=== PATIENT | female | born 1975 | race African-American/Black ===

== ENCOUNTER 2018-02-22 16:18 | Observation (INO) ==
[2018-02-22] MEDS ORDERED: Aluminum/Magnesium/Simethacone Susp 30 ML UDC PO ONE (17:24)
[2018-02-22] MEDS ORDERED: Morphine Inj 4 MG/ML Vial IV.PUSH ONE (17:24)
[2018-02-22] MEDS ORDERED: Famotidine PF Inj 20 MG/2 ML Vial IV.PUSH ONE (17:24)
--- NOTE | 2018-02-22 17:29 | ED ---
HPI General Chief Complaint: Abdominal Pain Stated Complaint: stomach pain/ Time Seen by Provider: 02/22/18 17:19 Source: patient Mode of arrival: ambulatory Limitations: no limitations History of Present Illness HPI narrative: Patient states no history of any past medical past surgical history with exception of tubal ligation. Patient denies any past medical history with exception of hypertension for which she is on amlodipine. Patient had acute onset of epigastric area pain, nonradiating, woke her up from sleep MD complaint: abdominal pain Onset (ago): day(s) (1) Pain Consistency: constant Location: epigastric Severity: mild Severity scale (1-10): 4 Quality: cramping and burning Radiation: none Migration to: no migration Relieving factors: nothing Exacerbating factors: nothing Associated symptoms: denies other symptoms Related Data Home Medications Medication Instructions Recorded Confirmed amlodipine 5 mg PO DAILY 02/22/18 02/22/18 Allergies Allergy/AdvReac Type Severity Reaction Status Date / Time No Known Allergies Allergy Verified 02/22/18 16:25 Review of Systems Except as stated in HPI: all other systems reviewed are negative PMFSH History History Provided By: Patient Medical History Medical History Hx of primary hypertension (Acute) Surgical History Surgical History Hx of tubal ligation (Acute) Social History Social History Substance History: No History of Abuse Smoking Status: Never smoker How Often Do You Have a Drink Containing Alcohol: 2 to 4 times a month Recent Travel in [facility] within the Last 8 Weeks: No Recent Out of Country Travel within the Last 8 Weeks: No Immunization History Tetanus Immunization: Unsure Hx Influenza Vaccine This Season: No Exam Narrative Exam Narrative: GENERAL: Well-nourished, well-developed patient in no apparent distress. SKIN: Warm and dry. HEAD: Atraumatic. Normocephalic. EYES: Pupils equal and round. No scleral icterus. No injection or drainage. ENT: No nasal bleeding or discharge. Mucous membranes pink and moist. NECK: Trachea midline. No JVD. CARDIOVASCULAR: Regular rate and rhythm. no rubs or gallops RESPIRATORY: No accessory muscle use. Clear to auscultation. Breath sounds equal bilaterally. GASTROINTESTINAL: Abdomen soft, non-tender, nondistended. No rebound or guarding MUSCULOSKELETAL: Extremities without clubbing, cyanosis, or edema. No obvious deformities. NEUROLOGICAL: Awake and alert. No obvious cranial nerve deficits. Motor grossly within normal limits. Five out of 5 muscle strength in the arms and legs. Normal speech. PSYCHIATRIC: Appropriate mood and affect; insight and judgment normal. Course Initial Documented Vital Signs Temperature 98.6 F 02/22/18 16:25 Pulse Rate 91 H 02/22/18 16:25 Respiratory Rate 18 02/22/18 16:25 Blood Pressure 223/119 H 02/22/18 16:25 Pulse Oximetry 99 02/22/18 16:25 Last Documented Vital Signs Temperature 98.6 F 02/22/18 16:25 Pulse Rate 91 H 02/22/18 16:25 Respiratory Rate 18 02/22/18 16:25 Blood Pressure 223/119 H 02/22/18 16:25 Pulse Oximetry 99 02/22/18 16:25 Medical Decision Making Lab Data Result diagrams: 02/22/18 17:30 02/22/18 17:30 Lab Results 02/22/18 02/22/18 02/22/18 Range/Units 17:30 17:30 17:30 CBC w Diff Auto diff final WBC 7.9 (4.0-11.0) th/mm3 RBC 4.95 (4.00-5.30) mil/mm3 Hgb 12.4 (11.6-15.3) gm/dL Hct 39.8 (35.0-46.0) % MCV 80.4 (80.0-100.0) fL MCH 25.0 L (27.0-34.0) pg MCHC 31.1 L (32.0-36.0) % RDW 14.2 (11.6-17.2) % Plt Count 255 (150-450) th/mm3 MPV 10.5 (7.0-11.0) fL Neut % (Auto) 71.2 H (16.0-70.0) % Lymph % (Auto) 21.1 (9.0-44.0) % [place] % (Auto) 4.6 (0.0-8.0) % Eos % (Auto) 2.1 (0.0-4.0) % Baso % (Auto) 1.0 (0.0-2.0) % Neut # (Auto) 5.5 (1.8-7.7) th/mm3 Lymph # (Auto) 1.7 (1.0-4.8) th/mm3 [place] # (Auto) 0.4 (0.0-0.9) th/mm3 Eos # (Auto) 0.2 (0.0-0.4) th/mm3 Baso # (Auto) 0.1 (0.0-0.2) th/mm3 WBC Differential . Differential Comment . Sodium 137 (136-145) meq/L Potassium 3.3 L (3.5-5.1) meq/L Chloride 102 (98-107) meq/L Carbon Dioxide 25.9 (21.0-32.0) meq/L Anion Gap 9 (5-15) meq/L BUN 13 (7-18) mg/dL Creatinine 1.30 H (0.50-1.00) mg/dL Estimated GFR 54 L (>89) mL/min Random Glucose 92 (74-106) mg/dL Calcium 9.0 (8.5-10.1) mg/dL Total Bilirubin 0.5 (0.2-1.0) mg/dL AST 21 (15-37) U/L ALT 29 (10-53) U/L Alkaline Phosphatase 69 (45-117) U/L Troponin I Cancelled 0.06 H Total Protein 9.0 H (6.4-8.2) g/dL Albumin 3.7 (3.4-5.0) g/dL Lipase 162 (73-393) U/L Imaging Data Radiologist's impression: Abdomen/Pelvis CT 02/22/18 17:24 CONCLUSION: 1. Subtle increased density within the gallbladder likely related to noncalcified gallstones. 2. No acute areas of inflammation are seen within the abdomen or pelvis. 3. Minimal patchy density is identified at the lower lobes likely related to atelectasis or minimal consolidation. 4. Diastases of the rectus muscles versus an umbilical hernia containing mesenteric fat. Discharge Plan Discharge Disposition Patient Disposition: 30 Still Patient Discharge Condition Condition: Stable Discharge Details Diagnosis: Elevated troponin, Epigastric abdominal pain Physicians Team ED Provider: Fabian Kunz Primary Care Provider: UNKNOWN, Rxs /Orders / Referrals /Forms Prescriptions: No Action amlodipine 5 mg Tablet 5 mg PO DAILY RF: 0 Status ED Status: With Doctor
--- NOTE | 2018-02-22 18:33 | CT ---
EXAM DATE: 02/22/2018 6:16 PM EDT AGE/SEX: 42 years / Female INDICATIONS: Bilateral upper quadrant pain. CLINICAL DATA: This is the patient's initial encounter. Patient reports that signs and symptoms have been present for 1 day and indicates a pain score of 8/10. MEDICAL/SURGICAL HISTORY: Hypertension. Tubal ligation. RADIATION DOSE: 14.47 CTDI (mGy) COMPARISON: No prior exams available for comparison. TECHNIQUE: Multiple contiguous axial images were obtained through the abdomen. Images were obtained using multiple row detector helical technique. Using automated exposure control and adjustment of the mA and/or kV according to patient size, radiation dose was kept as low as reasonably achievable to o btain optimal diagnostic quality images. DICOM format image data is available electronically for rev iew and comparison. FINDINGS: Lower Lungs: Minimal patchy density seen at the lower lobes especially at the right lower lobe. Liver: The liver has a homogeneous density without space-occupying lesion. There is no dilation of th e biliary tree. Mild increased density within the gallbladder likely related to noncalcified gallston es. Spleen: Homogeneous density without enlargement. Pancreas: Unremarkable without mass or calcification. Kidneys: Normal in size and shape. No evidence of mass or hydronephrosis. Adrenal Glands: Unremarkable. Aorta: The aorta and proximal iliac vessels are grossly unremarkable without aneurysmal dilation. Bowel/Mesentery: The bowel loops are grossly unremarkable. The cecum and sigmoid colon have a normal configuration. The appendix is normal. Abdominal Wall: There is diastases of the rectus muscles versus a umbilical hernia seen in the midli ne at the level the umbilicus containing only mesenteric fat. Retroperitoneum: No evidence of adenopathy in the retrocrural, para-aortic, or deep pelvic regions. Bladder: Contours are smooth. Reproductive Organs: The uterus appears mildly prominent. There is a 3 cm rounded focal density in t he anterior right adnexal region likely related to a mildly prominent right ovary. What appears to be the left ovary is seen in the lateral left pelvis and appears normal in size. No free fluid is seen. The pelvic structures are within normal range for the patient's age. Inguinal: The inguinal region is unremarkable without evidence of adenopathy. Bony Structures: Unremarkable. CONCLUSION: 1. Subtle increased density within the gallbladder likely related to noncalcified gallstones. 2. No acute areas of inflammation are seen within the abdomen or pelvis. 3. Minimal patchy density is identified at the lower lobes likely related to atelectasis or minimal consolidation. 4. Diastases of the rectus muscles versus an umbilical hernia containing mesenteric fat. Electronically signed by: Juan Matthews MD 02/22/2018 6:31 PM EDT
[2018-02-22 18:48] LABS: Baso # (Auto) 0.1 th/mm3 (0.0-0.2); Eos # (Auto) 0.2 th/mm3 (0.0-0.4); Eos % (Auto) 2.1 % (0.0-4.0); Hematocrit 39.8 % (35.0-46.0); Hemoglobin 12.4 gm/dL (11.6-15.3); Lymph # (Auto) 1.7 th/mm3 (1.0-4.8); Lymph % (Auto) 21.1 % (9.0-44.0); Mean Corpuscular HGB Conc 31.1 % (32.0-36.0); Mean Corpuscular Volume 80.4 fL (80.0-100.0); Mean Platelet Volume 10.5 fL (7.0-11.0); Mono # (Auto) 0.4 th/mm3 (0.0-0.9); Mono % (Auto) 4.6 % (0.0-8.0); Neut # (Auto) 5.5 th/mm3 (1.8-7.7); Neut % (Auto) 71.2 % (16.0-70.0); Platelet Count 255 th/mm3 (150-450); Red Blood Count 4.95 mil/mm3 (4.00-5.30); Red Cell Distribution Width 14.2 % (11.6-17.2); White Blood Count 7.9 th/mm3 (4.0-11.0)
[2018-02-22 18:55] LABS: Chloride 102 meq/L (98-107); Potassium 3.3 meq/L (3.5-5.1); Sodium 137 meq/L (136-145)
[2018-02-22 18:59] LABS: Albumin 3.7 g/dL (3.4-5.0); Anion Gap 9 meq/L (5-15); Blood Urea Nitrogen 13 mg/dL (7-18); Carbon Dioxide 25.9 meq/L (21.0-32.0); Glucose,Random 92 mg/dL (74-106); Lipase 162 U/L (73-393)
[2018-02-22 19:02] LABS: Alanine Aminotransferase 29 U/L (10-53); Aspartate Aminotransferase 21 U/L (15-37); Glomerular Filtration Rate 54 mL/min (>89)
[2018-02-22 19:05] LABS: Alkaline Phosphatase 69 U/L (45-117)
[2018-02-22 19:07] LABS: Troponin I 0.06 ng/mL (0.02-0.05)
[2018-02-22] MEDS ORDERED: hydrALAZINE HCl Inj 20 MG/ML Vial IV.PUSH ONE (19:28)
[2018-02-22] MEDS ORDERED: Bisacodyl 10 MG Supp RECTAL PRN (20:19)
[2018-02-22] MEDS ORDERED: Temazepam 15 MG Capsule PO PRN (20:19)
[2018-02-22] MEDS ORDERED: Metoprolol Inj 5 MG/5 ML Vial IV.PUSH ONE (20:30)
[2018-02-22] MEDS ORDERED: Acetaminophen 325 MG Tablet PO PRN (21:00)
[2018-02-22] MEDS ORDERED: Senna/Docusate Sodium 8.6/50 MG Tablet PO SCH (21:00)
[2018-02-23] MEDS ORDERED: amLODIPine 5 MG Tablet PO SCH (09:00)
--- NOTE | 2018-02-23 14:12 | ECG ---
Date Performed: 02/22/2018 Time Performed: 17:36:06 PTAGE: 42 years EKG: Sinus rhythm POSSIBLE LEFT ATRIAL ENLARGEMENT POSSIBLE LEFT VENTRICULAR HYPERTROPHY NONSPECIFIC T-WAVE ABNORMALIT Y ABNORMAL ECG NO PREVIOUS TRACING DOCTOR: Bryson Phelps Interpretating Date/Time 02/23/2018 14:09:08
== END 2018-02-22 20:47 | disposition left against medical advice (07) ==
LOC: PHEDA 16:18 → PHED 16:18 → PHEDA 20:20
PROVIDERS: ADMIT Hospitalist; ATTEND Hospitalist